=== PATIENT | male | born 1980 | race Caucasian/White ===

== ENCOUNTER 2017-03-16 16:38 | Emergency (ER) | payer SELFPAY ==
--- NOTE | 2017-03-16 17:37 | ED Physician Chart ---
ED Chief Complaint/HPI - Patient Information Date Seen:: 03/16/17 Time Seen:: 17:00 Allergies:: Allergies Allergy/AdvReac Type Severity Reaction Status Date / Time No Known Allergies Allergy Verified 03/16/17 16:51 Vitals:: Vital Signs - 8 hr 03/16/17 16:52 Temp 98.2 F HR 97 RR 18 BP 120/71 O2 Sat % 99 Family Medical History - Family Member Mother History Unknown: Yes ED Physical Exam - Physical Examination Other Extremities comments:: THE LEFT. ELBOW IS RED, SLIGHTLY SWOLLEN AND POINT TENDER AT THE OLECRANON PROCESS AREA ED Labs/Radiology/EKG Results - Radiology Results Results: LEFT ELBOW X-RAY = NO ACUTE FRACTURE ED Assessment - Assessment General Assessment: INFECTION OF THE ELBOW ED Septic Shock - . Is Septic Shock (SBP<90, OR Lactate>4 mmol\L) present?: No - <6hrs of presentation: Vital Signs: Vital Signs - 8 hr 03/16/17 16:52 Temp 98.2 F HR 97 RR 18 BP 120/71 O2 Sat % 99 ED Reassessment (Disposition) - Reassessment Reassessment Condition:: Unchanged - Diagnosis Diagnosis:: LEFT ELBOW INFECTION - Aftercare/Follow up Instructions Aftercare/Follow-Up Instructions:: Counseled pt regarding lab results/diagnosis & need follow up, Refer to Discharge Instructions, Counseled pt & family regarding lab results/diagnosis & need follow up - Patient Disposition Discharge/Transfer:: Home Condition at Disposition:: Unchanged ED Discharge Plan - Patient Disposition Admit/Discharge/Transfer: PT DISCHARGED HOME Condition at Disposition: Unchanged
--- NOTE | 2017-03-17 08:22 | Diagnostic Imaging Report ---
Right elbow 3 views Indication: Trauma Comparison: none Findings: Minimal degenerative changes are noted. No evidence of acute fracture. No definite elevation of the fat pads. There is soft tissue swelling posterior to the olecranon process. Impression: No evidence of an acute fracture. Soft tissue swelling posterior to the olecranon process which may be posttraumatic or due to olecranon bursitis. Please correlate clinically. In the setting of trauma, if clinical symptoms persist and there is continued concern for an occult fracture, follow up exams in 5-7 days is suggested.
--- NOTE | 2017-03-17 08:24 | Diagnostic Imaging Report ---
Right ankle 3 views Indication: Trauma Comparison: none Findings: No evidence of an acute fracture dislocation. No focal soft tissue swelling. Minimal degenerative changes are noted. Impression: No evidence of an acute fracture. In the setting of trauma, if clinical symptoms persist and there is continued concern for an occult fracture, follow up exams in 5-7 days is suggested.
== END 2017-03-16 18:55 | disposition home or self-care (01) ==
LOC: ER 16:38
DX: L08.9 Local infection of the skin and subcutaneous tissue, unspecified (principal)
CPT/HCPCS: 73080-TC-LT; 73610-RT-TC; Z7502

== ENCOUNTER 2017-03-27 16:15 | Emergency (ER) | payer SELFPAY | END 2017-03-27 16:25 | disposition left against medical advice (07) | LOC: ER 16:15 | DX: M79.89 Other specified soft tissue disorders (principal) ==

== ENCOUNTER 2017-03-31 02:22 | Emergency (ER) | payer MEDICAID ==
[2017-03-31 03:03] LABS: URINE BILIRUBIN NEGATIVE (NEGATIVE); URINE BLOOD TRACE (NEGATIVE); URINE GLUCOSE (UA) NEGATIVE (NEGATIVE); URINE KETONE NEGATIVE (NEGATIVE); URINE PROTEIN TRACE mg/dL (NEGATIVE); URINE UROBILINOGEN 0.2 E.U./dL (0.2 - 1.0)
[2017-03-31 03:06] LABS: URINE COLOR YELLOW
[2017-03-31 03:10] LABS: URINE BACTERIA OCCASIONAL /hpf (NONE SEEN); URINE EPITHELIAL CELLS OCCASIONAL /lpf (FEW); URINE URIC ACID CRYSTALS FEW /hpf (NONE SEEN); URINE WBC 0-2 /hpf (0-5)
[2017-03-31 03:13] LABS: AMPHETAMINE URINE NEGATIVE (NEGATIVE); BARBITURATES URINE NEGATIVE (NEGATIVE); METHADONE URINE NEGATIVE (NEGATIVE)
--- NOTE | 2017-03-31 03:16 | ED Physician Chart ---
ED Chief Complaint/HPI - Patient Information Date Seen:: 03/31/17 Time Seen:: 02:30 Chief Complaint:: ABDOMINAL PAIN History of Present Illness:: THIS IS A 36 YR MALE WHO STATES THAT HE HAS HAD ABDOMINAL PAIN FOR TWO DAYS WITH NO NAUSEA, NO VOMITING OR DIARRHEA. HE HAS A HISTORY OF CIRRHOSIS OF THE LIVER AND PANCREATITIS. HE STATES THE PAIN IS 8/10. HE DENIES FEVER . HE ALSO HAS HAD RIGHT HAND SWELLING FOR A MONTH. HE WAS SEEN HERE ON TWO PREVIOUS OCCASIONS FOR THE SAME SYMPTOMS. THE PATIENT STATES THAT HE DRANK SOME ALCOHOL LAST NIGHT BUT TAKE MEDICATION FOR WITHDRAWAL. Allergies:: Allergies Allergy/AdvReac Type Severity Reaction Status Date / Time No Known Allergies Allergy Verified 03/31/17 02:32 Vitals:: Vital Signs - 8 hr 03/31/17 02:25 Temp 98.1 F HR 90 RR 18 BP 130/84 O2 Sat % 97 Historian:: Patient Review:: Nurse's Note Reviewed, Old Chart Reviewed ED Review of Systems - Review of Systems General/Constitutional: No fever, No chills, No weight loss, No weakness, No diaphoresis, No edema, No loss of appetite Skin: No skin lesions, No rash, No bruising Head: No headache, No light-headedness Eyes: No loss of vision, No pain, No diplopia ENT: No earache, No nasal drainage, No sore throat, No tinnitus Neck: No neck pain, No swelling, No thyromegaly, No stiffness, No mass noted Cardio Vascular: No chest pain, No palpitations, No PND, No orthopnea, No edema Pulmonary: No SOB, No cough, No sputum, No wheezing GI: No nausea, No vomiting, No diarrhea, Pain, No melena, No hematochezia, No constipation, No hematemesis G/U: No dysuria, No frequency, No hematuria Musculoskeletal: No bone or joint pain, No back pain, No muscle pain, Other ( RIGHT HAND SWELLING) Endocrine: No polyuria, No polydipsia Psychiatric: No prior psych history, No depression, No anxiety, No suicidal ideation Hematopoietic: No bruising, No lymphadenopathy Allergic/Immuno: No urticaria, No angioedema Neurological: No syncope, No focal symptoms, No weakness, No paresthesia, No headache, No seizure, No dizziness, No confusion, No vertigo ED Past Medical History - Past Medical History Obtainable: Yes Past Medical History: Arthritis, Other (LIVER DISEASE) Family History: None Social History: Smoker, Alcohol, Illicit Drug Use, Lives Alone Surgical History: None Psychiatricy History: Depression Medication: Reviewed Family Medical History - Family Member Mother History Unknown: Yes Hx Family Diabetes: Yes ED Physical Exam - Physical Examination General/Constitutional: Awake, Well-developed, well-nourished, Alert, No distress, GCS 15, Non-toxic appearing, Ambulatory Other Gen/Cons comments:: SOMEWHAT LETHARGIC LOOKS INTOXICATED AND SMELLS LIKE ALCOHOL. Head: Atraumatic Eyes: Lids, conjuctiva normal, PERRL, EOMI Skin: Nl inspection, No rash, No skin lesions, No ecchymosis, Well hydrated, No lymphadenopathy ENMT: External ears, nose nl, Nasal exam nl, Lips, teeth, gums nl Neck: Nontender, Full ROM w/o pain, No JVD, No nuchal rigidity, No bruit, No mass, No stridor Respiratory: Nl effort/Exclusion, Clear to Auscultation, No Wheeze/Rhonchi/Rales Cardio Vascular: RRR, No murmur, gallop, rubs, NL S1 S2 GI: No organomegaly, No hernia, Normal BS's, Nondistended, No mass/bruits, No McBurney tenderness Other GI comments:: MINIMAL GENERALIZE TENDERNESS : No CVA tenderness Extremities: No tenderness or effusion, Full ROM, normal strength in all extremities, No edema, Normal digits & nails Neuro/Psych: Alert/oriented, DTR's symmetric, Normal sensory exam, Normal motor strength, Judgement/insight normal, Mood normal, Normal gait, No focal deficits Misc: normal gait, Normal back, No paraspinal tenderness ED Labs/Radiology/EKG Results - Lab Results Results: Abnormal Lab Results 03/31/17 03/31/17 03/31/17 02:50 02:50 03:08 WBC RBC Hgb Hct MCV MCH MCHC Differential RDW Plt Count MPV Neutrophils % Lymphocytes % Monocytes % Eosinophils % Basophils % PT 10.1 INR 0.97 Sodium Potassium Chloride Carbon Dioxide Anion Gap BUN Creatinine Est GFR ( Amer) Est GFR (Non-Af Amer) BUN/Creatinine Ratio Glucose Calcium Total Bilirubin AST ALT Alkaline Phosphatase Troponin I Total Protein Albumin Globulin Albumin/Globulin Ratio Triglycerides Cholesterol LDL Cholesterol Direct HDL Cholesterol TSH Urine Source [place] Urine Color YELLOW Urine Clarity CLEAR Urine pH 5.0 Ur Specific [place] >= 1.030 Urine Protein TRACE Urine Glucose (UA) NEGATIVE Urine Ketones NEGATIVE Urine Blood TRACE Urine Nitrate NEGATIVE Urine Bilirubin NEGATIVE Urine Urobilinogen 0.2 Ur Leukocyte Esterase NEGATIVE Urine RBC 2-5 H Urine WBC 0-2 Ur Epithelial Cells OCCASIONAL Uric Acid Crystals FEW Urine Bacteria OCCASIONAL Urine Opiates Screen POSITIVE H Urine Methadone Screen NEGATIVE Ur Barbiturates Screen NEGATIVE Ur Tricyclics Screen NEGATIVE Ur Phencyclidine Scrn NEGATIVE Amphetamines Screen NEGATIVE U Methamphetamines Scrn NEGATIVE U Benzodiazepines Scrn NEGATIVE U Cocaine Metab Screen NEGATIVE U Cannabinoids Screen POSITIVE H 03/31/17 03/31/17 03/31/17 03:08 03:08 03:08 WBC 5.5 RBC 4.15 L Hgb 13.2 Hct 39.3 L MCV 94.8 MCH 31.9 H MCHC Differential 33.6 RDW 13.1 Plt Count 185 MPV 7.5 Neutrophils % 51.4 Lymphocytes % 28.0 Monocytes % 12.7 H Eosinophils % 5.7 H Basophils % 2.2 H PT INR Sodium 135 L Potassium 3.6 Chloride 99 Carbon Dioxide 26.7 Anion Gap 12.9 BUN 10 Creatinine 0.6 L Est GFR ( Amer) > 60.0 Est GFR (Non-Af Amer) > 60.0 BUN/Creatinine Ratio 16.7 Glucose 117 H Calcium 9.0 Total Bilirubin 0.4 AST 157 H ALT 106 H Alkaline Phosphatase 116 H Troponin I Total Protein 7.5 Albumin 4.6 Globulin 2.9 Albumin/Globulin Ratio 1.6 Triglycerides 67 Cholesterol 259 H LDL Cholesterol Direct 116 HDL Cholesterol 138 H TSH Urine Source Urine Color Urine Clarity Urine pH Ur Specific [place] Urine Protein Urine Glucose (UA) Urine Ketones Urine Blood Urine Nitrate Urine Bilirubin Urine Urobilinogen Ur Leukocyte Esterase Urine RBC Urine WBC Ur Epithelial Cells Uric Acid Crystals Urine Bacteria Urine Opiates Screen Urine Methadone Screen Ur Barbiturates Screen Ur Tricyclics Screen Ur Phencyclidine Scrn Amphetamines Screen U Methamphetamines Scrn U Benzodiazepines Scrn U Cocaine Metab Screen U Cannabinoids Screen 03/31/17 03/31/17 03:08 03:08 WBC RBC Hgb Hct MCV MCH MCHC Differential RDW Plt Count MPV Neutrophils % Lymphocytes % Monocytes % Eosinophils % Basophils % PT INR Sodium Potassium Chloride Carbon Dioxide Anion Gap BUN Creatinine Est GFR ( Amer) Est GFR (Non-Af Amer) BUN/Creatinine Ratio Glucose Calcium Total Bilirubin AST ALT Alkaline Phosphatase Troponin I 0.01 Total Protein Albumin Globulin Albumin/Globulin Ratio Triglycerides Cholesterol LDL Cholesterol Direct HDL Cholesterol TSH 0.31 L Urine Source Urine Color Urine Clarity Urine pH Ur Specific [place] Urine Protein Urine Glucose (UA) Urine Ketones Urine Blood Urine Nitrate Urine Bilirubin Urine Urobilinogen Ur Leukocyte Esterase Urine RBC Urine WBC Ur Epithelial Cells Uric Acid Crystals Urine Bacteria Urine Opiates Screen Urine Methadone Screen Ur Barbiturates Screen Ur Tricyclics Screen Ur Phencyclidine Scrn Amphetamines Screen U Methamphetamines Scrn U Benzodiazepines Scrn U Cocaine Metab Screen U Cannabinoids Screen Abnormal Lab Results 03/31/17 03/31/17 03/31/17 02:50 02:50 03:08 WBC RBC Hgb Hct MCV MCH MCHC Differential RDW Plt Count MPV Neutrophils % Lymphocytes % Monocytes % Eosinophils % Basophils % PT 10.1 INR 0.97 Sodium Potassium Chloride Carbon Dioxide Anion Gap BUN Creatinine Est GFR ( Amer) Est GFR (Non-Af Amer) BUN/Creatinine Ratio Glucose Calcium Total Bilirubin AST ALT Alkaline Phosphatase Troponin I Total Protein Albumin Globulin Albumin/Globulin Ratio Triglycerides Cholesterol LDL Cholesterol Direct HDL Cholesterol TSH Urine Source [place] Urine Color YELLOW Urine Clarity CLEAR Urine pH 5.0 Ur Specific [place] >= 1.030 Urine Protein TRACE Urine Glucose (UA) NEGATIVE Urine Ketones NEGATIVE Urine Blood TRACE Urine Nitrate NEGATIVE Urine Bilirubin NEGATIVE Urine Urobilinogen 0.2 Ur Leukocyte Esterase NEGATIVE Urine RBC 2-5 H Urine WBC 0-2 Ur Epithelial Cells OCCASIONAL Uric Acid Crystals FEW Urine Bacteria OCCASIONAL Urine Opiates Screen POSITIVE H Urine Methadone Screen NEGATIVE Ur Barbiturates Screen NEGATIVE Ur Tricyclics Screen NEGATIVE Ur Phencyclidine Scrn NEGATIVE Amphetamines Screen NEGATIVE U Methamphetamines Scrn NEGATIVE U Benzodiazepines Scrn NEGATIVE U Cocaine Metab Screen NEGATIVE U Cannabinoids Screen POSITIVE H Ethyl Alcohol 03/31/17 03/31/17 03/31/17 03:08 03:08 03:08 WBC 5.5 RBC 4.15 L Hgb 13.2 Hct 39.3 L MCV 94.8 MCH 31.9 H MCHC Differential 33.6 RDW 13.1 Plt Count 185 MPV 7.5 Neutrophils % 51.4 Lymphocytes % 28.0 Monocytes % 12.7 H Eosinophils % 5.7 H Basophils % 2.2 H PT INR Sodium 135 L Potassium 3.6 Chloride 99 Carbon Dioxide 26.7 Anion Gap 12.9 BUN 10 Creatinine 0.6 L Est GFR ( Amer) > 60.0 Est GFR (Non-Af Amer) > 60.0 BUN/Creatinine Ratio 16.7 Glucose 117 H Calcium 9.0 Total Bilirubin 0.4 AST 157 H ALT 106 H Alkaline Phosphatase 116 H Troponin I Total Protein 7.5 Albumin 4.6 Globulin 2.9 Albumin/Globulin Ratio 1.6 Triglycerides 67 Cholesterol 259 H LDL Cholesterol Direct 116 HDL Cholesterol 138 H TSH Urine Source Urine Color Urine Clarity Urine pH Ur Specific [place] Urine Protein Urine Glucose (UA) Urine Ketones Urine Blood Urine Nitrate Urine Bilirubin Urine Urobilinogen Ur Leukocyte Esterase Urine RBC Urine WBC Ur Epithelial Cells Uric Acid Crystals Urine Bacteria Urine Opiates Screen Urine Methadone Screen Ur Barbiturates Screen Ur Tricyclics Screen Ur Phencyclidine Scrn Amphetamines Screen U Methamphetamines Scrn U Benzodiazepines Scrn U Cocaine Metab Screen U Cannabinoids Screen Ethyl Alcohol 03/31/17 03/31/17 03/31/17 03:08 03:08 03:08 WBC RBC Hgb Hct MCV MCH MCHC Differential RDW Plt Count MPV Neutrophils % Lymphocytes % Monocytes % Eosinophils % Basophils % PT INR Sodium Potassium Chloride Carbon Dioxide Anion Gap BUN Creatinine Est GFR ( Amer) Est GFR (Non-Af Amer) BUN/Creatinine Ratio Glucose Calcium Total Bilirubin AST ALT Alkaline Phosphatase Troponin I 0.01 Total Protein Albumin Globulin Albumin/Globulin Ratio Triglycerides Cholesterol LDL Cholesterol Direct HDL Cholesterol TSH 0.31 L Urine Source Urine Color Urine Clarity Urine pH Ur Specific [place] Urine Protein Urine Glucose (UA) Urine Ketones Urine Blood Urine Nitrate Urine Bilirubin Urine Urobilinogen Ur Leukocyte Esterase Urine RBC Urine WBC Ur Epithelial Cells Uric Acid Crystals Urine Bacteria Urine Opiates Screen Urine Methadone Screen Ur Barbiturates Screen Ur Tricyclics Screen Ur Phencyclidine Scrn Amphetamines Screen U Methamphetamines Scrn U Benzodiazepines Scrn U Cocaine Metab Screen U Cannabinoids Screen Ethyl Alcohol 383 H ED Assessment - Assessment General Assessment: LIVER CIRRHOSIS DRUG ABUSE alcohol intoxication ED Septic Shock - . Is Septic Shock (SBP<90, OR Lactate>4 mmol\L) present?: No - <6hrs of presentation: Vital Signs: Vital Signs - 8 hr 03/31/17 02:25 Temp 98.1 F HR 90 RR 18 BP 130/84 O2 Sat % 97 ED Reassessment (Disposition) - Reassessment Reassessment Condition:: Unchanged - Diagnosis Diagnosis:: ABDOMINAL PAIN DRUG ABUSE ALCOHOL INTOXICATION - Aftercare/Follow up Instructions Aftercare/Follow-Up Instructions:: Counseled pt regarding lab results/diagnosis & need follow up, Refer to Discharge Instructions, Counseled pt & family regarding lab results/diagnosis & need follow up - Patient Disposition Discharge/Transfer:: Home Condition at Disposition:: Improved ED Discharge Plan - Patient Disposition Admit/Discharge/Transfer: PT DISCHARGED HOME
[2017-03-31 03:20] LABS: % BASOPHILS 2.2 % (0.0-2.0); % EOSINOPHILS 5.7 % (0.0-5.0); % MONOCYTES 12.7 % (2.0-10.0); % NEUTROPHILS 51.4 % (40.0-80.0); HEMATOCRIT 39.3 % (41.0-60); HEMOGLOBIN 13.2 gm/dL (12-16); MEAN CELL VOLUME 94.8 fl (80-99); MEAN CORPUSCULAR HEMOGLOBIN 31.9 pg (26.0-30.0); MEAN CORPUSCULAR HGB CONC 33.6 pg (28.0-36.0); MEAN PLATELET VOLUME 7.5 fl; NEUTROPHILE ABSOLUTE 2.9 Th/cmm (1.8-8.0); PLATELET COUNT 185 Th/cmm (150-400); RED BLOOD COUNT 4.15 Mil/cmm (4.30-5.70); RED CELL DISTRIBUTION WIDTH 13.1 % (11.5-20.0); WHITE BLOOD COUNT 5.5 Th/cmm (4.8-10.8)
[2017-03-31 03:33] LABS: INR 0.97 (0.5-1.4); PROTHROMBIN TIME (TEST) 10.1 SECONDS (9.5-11.5)
[2017-03-31 03:38] LABS: ALB/GLOB RATIO 1.6 (1.0-1.8); ALKALINE PHOSPHATASE 116 U/L (34-104); ANION GAP 12.9 (7.0-16.0); BILIRUBIN,TOTAL 0.4 mg/dL (0.3-1.0); BUN - UREA NITROGEN 10 mg/dL (7-25); BUN/CREATININE RATIO 16.7; CARBON DIOXIDE 26.7 mEq/L (21.0-31.0); CHLORIDE 99 mEq/L (98-107); CREATININE - SERUM 0.6 mg/dL (0.7-1.3); GLUCOSE 117 mg/dL (70-105); POTASSIUM SERUM 3.6 mEq/L (3.5-5.1); SGOT 157 U/L (13-39); SGPT/ALT 106 U/L (7-52); SODIUM SERUM 135 mEq/L (136-145)
[2017-03-31 03:39] LABS: CHOLESTEROL 259 mg/dL (<200); TRIGLYCERIDES 67 mg/dL (<150)
== END 2017-03-31 07:00 | disposition home or self-care (01) ==
LOC: ER 02:22
DX: R10.9 Unspecified abdominal pain (principal); F10.129 Alcohol abuse with intoxication, unspecified; F32.9 Major depressive disorder, single episode, unspecified; F17.200 Nicotine dependence, unspecified, uncomplicated; M12.9 Arthropathy, unspecified
CPT/HCPCS: 36415-UA; 80053-TC; 80061-TC; 80307; 80320-TC; 81001-TC; 84443-TC; 84484-TC; 85025-TC; 85610-TC; 86592-TC; Z7502